=== PATIENT | female | born 1970 | race Two or more races ===

== ENCOUNTER 2023-06-26 06:41 | Day surgery (SDC) | payer OTHER ==
[2023-06-23 10:21] LABS: HEMATOCRIT 41.2 % (36.0-45.00); HEMOGLOBIN 13.3 g/dL (12.0-15.00); MEAN CELL VOLUME 87.3 fL (80.00-100.00); MEAN CORPUSCULAR HEMOGLOBIN 28.1 pg (27.00-32.0); MEAN CORPUSCULAR HGB CONC 32.2 g/dl (32.0-36.0); PLATELET COUNT 253 K/uL (150-450); RED BLOOD COUNT 4.73 M/uL (4.00-6.00); RED CELL DISTRIBUTION WIDTH 15.1 % (11.5-14.5)
[2023-06-23 10:31] LABS: URINE APPEARANCE Clear; URINE BILIRRUBIN Negative (NEGATIVE); URINE BLOOD Negative; URINE COLOR Yellow; URINE GLUCOSE Negative (NEGATIVE); URINE LEUKOCYTE Negative; URINE NITRATE Negative; URINE PROTEIN Negative (NEGATIVE); URINE UROBILINOGEN 0.2 E.U./dl
[2023-06-23 10:37] LABS: URINE EPITHELIAL CELLS 10.3 uL (0.0-38.8); URINE RBC 4.5 uL (0.0-20.8); URINE WBC 4.7 uL (0.0-23.2)
[2023-06-23 11:12] LABS: ALBUMIN 3.9 gm/dL (3.4-5.0); BILIRUBIN TOTAL 0.33 mg/dL (0.3-1.2); CALCIUM 9.4 mg/dL (8.5-10.1); CREATININE SERUM 0.73 mg/dL (0.55-1.02); GFR 83.39; GLOBULINA 3.7 G/DL (2.4-3.5); POTASSIUM 4.2 mEq/L (3.5-5.1); TOTAL PROTEIN 7.6 gm/dL (6.4-8.2)
[2023-06-23 11:18] LABS: INR 0.99; PARTIAL THROMBOPLASTIN TIME 26.3 SECONDS (22.0-34.0); PROTHROMBIN TIME 10.4 SECONDS (9.0-11.5)
[~2023-06-26] VITALS: Ht 160 cm; Wt 90.7 kg
[~2023-06-26 06:41] MED LIST: ACID REDUCER20 M1 PO
[2023-06-26] MEDS ORDERED: MORGIDOX100 MG PO (13:34)
[2023-06-26] MEDS ORDERED: IBU600 MG PO (13:35)
== END 2023-06-26 17:20 | disposition home or self-care (01) ==
LOC: CIR.AMB 06:41
PROVIDERS: ATTEND Obstetrics & Gynecology
DX: N95.0 Postmenopausal bleeding (principal); N84.0 Polyp of corpus uteri; N80.03 Adenomyosis of the uterus; D25.0 Submucous leiomyoma of uterus; Z20.822 Contact with and (suspected) exposure to COVID-19